=== PATIENT | female | born 1990 | race Caucasian/White ===

== ENCOUNTER 2021-12-18 13:38 | Emergency (ER) | payer OTHER, MEDICAID, SELFPAY ==
[2021-12-18 14:00] VITALS: BP 125/91; PULSE 98; RESP 18; TEMP 37.2; O2SAT 98; BMI 26.5
--- NOTE | 2021-12-18 15:23 | ED.URI ---
HPI - URI/Sore Throat General Chief Complaint: Upper Respiratory Symptoms Stated Complaint: covid+, chest tight Time Seen by Provider: 12/18/21 15:18 Source: patient Mode of arrival: Ambulatory Limitations: no limitations History of Present Illness HPI Narrative: This is a 31-year-old female known asthmatic with 2 positive test for coronavirus at home. Patient was seen at [facility] today for chest tightness. She states that she was given a prescription for albuterol, nebulizer and prednisone. Patient states she was unable to feel the nebulizer as all the home medical supply stores are closed. Patient denies any other medical issues. She has not had fevers she has had a nonproductive but dry cough. She has had burning in her chest. She states she does feel tight but she has not been wheezy. She has had some nausea but no vomiting. She had episode or 2 of diarrhea. No black or bloody stools. No urinary symptoms. No swelling in extremities. Patient has tried her albuterol with minimal to no improvement. She was given a prescription for prednisone which she has taken today. She was vaccinated for coronavirus her last vaccine was in September of 2020. Patient denies any major surgeries. No tobacco, no illicit. Related Data Previous Rx's Medication Instructions Recorded codeine 10 mg-guaifenesin 100 mg/5 5 ml PO Q6H PRN #50 ml 12/18/21 mL oral liquid Allergies Allergy/AdvReac Type Severity Reaction Status Date / Time No Known Drug Allergies Allergy Verified 12/18/21 14:30 Review of Systems Review of Systems ROS Unobtainable: All systems reviewed & are unremarkable except as noted in HPI and below Patient History Social History Smoking Status: Never smoker Smoking Status: Never smoker Substance Use Type: does not use Exam Narrative Exam Narrative: GENERAL: Alert and oriented x three, female in mild distress. HEENT: Head normocephalic, atraumatic, EOMI, pupils reactive, face symmetric, moist mucous membranes NECK: Supple, full range of motion CARDIOVASCULAR: Regular rate and rhythm without murmurs, rubs or gallops. RESPIRATORY: Breath sounds equal bilaterally, no wheezes rales or rhonchi. No tachypnea or accessory muscle use. Speaks in full sentences. ABDOMEN: Soft, nontender. Normoactive bowel sounds all 4 quadrants. No guarding or rebound, rigidity, no mass : No CVA tenderness EXTREMITIES: Normal range of motion, no clubbing or edema. Neurovascularly intact NEUROLOGICAL: Cranial nerves II through XII grossly intact. Moving all extremities SKIN: Warm, dry, no petechiae, no rashes or lesions. Initial Vital Signs Initial Vital Signs: Vital Signs Temperature 98.9 F 12/18/21 14:00 Pulse Rate 98 H 12/18/21 14:00 Respiratory Rate 18 12/18/21 14:00 Blood Pressure 125/91 H 12/18/21 14:00 Pulse Oximetry 98 12/18/21 14:00 Course Vital Signs Vital signs: Vital Signs - 8 hr 12/18/21 14:00 12/18/21 16:23 Temperature 98.9 F Pulse Rate 98 H 74 Respiratory Rate 18 Blood Pressure 125/91 H 124/79 Pulse Oximetry 98 98 MDM - URI/Sore Throat MDM Narrative Medical decision making narrative: This is a 31-year-old asthmatic with positive home COVID test x2 patient was seen earlier today [facility] given albuterol vials for nebulizer, nebulizer prescription and prednisone. Patient was able to fill the prednisone and she took this but cannot find a nebulizer as all the home medical supply stores are closed. Patient is not wheezy, she is not hypoxic, her heart rates in the 90s but otherwise normal vitals. At this time I do not feel chest x-ray would be helpful for her. Discussed that the symptoms she or having are quite classic for COVID infection. She may not find much help with nebulizer but would recommend obtaining a pulse oximeter when available to monitor her home O2 level if this would give her some reassurance. Will give her prescription for an anti tested this her cough has been quite frequent. Return precautions discussed. Discharge Plan Departure Patient Disposition: Home Clinical Impression: COVID-19 virus infection Instructions: DI for COVID-19 (Suspected or Confirmed ) Activity Restrictions/Additional Instructions: *You have been diagnosed with COVID infection If you wish you may obtain a pulse oximeter for use at home to monitor. Please return to the ER if your pulse oximeter shows an O2 saturation less than 90%. You may use albuterol 2-4 puffs every 4 hours if you find it helpful. You may take cough medication as prescribed. This medication can make you sleepy do not drive, perform hazardous activities or make any major decisions while taking it. This medication will make you constipated please take a stool softener once to twice daily until stools are soft and regular. Prescription sent to [facility] in [place]. *What to do: * per recommendations from the CDC and the [facility] Department of Health * stay home except to get medical care. Restrict activities outside your home, except for getting medical care. Do not go to work, school, or public areas. Avoid using public transportation, ride sharing, or taxis. * separate yourself from other people in your home. * call ahead before visiting your doctor * Wear a face mask * Cover your coughs and sneezes * Clean your hands often * Avoid sharing household items * Clean all high-touch services every day * Monitor your symptoms and seek prompt medical attention if your illness is worsening, particularly with difficulty in breathing. Discussed continuing home isolation * for individuals with symptoms who are confirmed or suspected cases of COVID-19 and are directed to care for themselves at home, discontinue home isolation under the following conditions: 1. At least 72 hours have passed since recovery, defined as resolution of fever without the use of fever reducing medications, and improvement in respiratory symptoms (cough, shortness of breath) AND, 2. At least 7 days have passed since symptoms 1st appeared Individuals with laboratory confirmed COVID-19 who have not had any symptoms may discontinue home isolation when at least 5 days have passed since the date of their 1st COVID-19 diagnostic test and have had no subsequent illness Prescriptions: New codeine-guaifenesin 10-100 mg/5 mL liquid 5 ml PO Q6H PRN (Reason: cough) Qty: 50 0RF
[2021-12-18 16:23] VITALS: BP 124/79; PULSE 74; O2SAT 98
== END 2021-12-18 16:26 | disposition home or self-care (01) ==
PROVIDERS: Emergency Provider Emergency Medicine
DX: U07.1 COVID-19 (principal)
CPT/HCPCS: 99281